=== PATIENT | male | born 1955 | race Caucasian/White ===

== ENCOUNTER 2021-07-23 09:40 | Inpatient (IN) | payer SELFPAY ==
[2021-07-23 10:13] LABS: CHLORIDE,CL 103 mEq/L (98-106); SODIUM,NA 137 mEq/L (136-145)
[2021-07-23] MEDS ORDERED: Furosemide 40 MG/4 ML VIAL IVPUSH ONE (13:31)
[2021-07-23] MEDS ORDERED: Docusate Sodium 100 MG Cap PO PRN (14:39)
[2021-07-23] MEDS ORDERED: Acetaminophen 325 MG Tab PO PRN (14:39)
[2021-07-23] MEDS ORDERED: Amiodarone 150 MG/3 ML SDV IVPUSH ONE (14:39)
[2021-07-23] MEDS ORDERED: Sodium Chloride 0.9% 10 ML Syringe FLUSH PRN (14:39)
[2021-07-23] MEDS ORDERED: Amiodarone 450 MG in Dextrose 5% in Water 250 ML IV ONE ×2 (15:35)
[2021-07-23] MEDS: Enoxaparin 80 MG/0.8 ML Syringe SUBCUT SCH (16:40)
[2021-07-23] MEDS ORDERED: Amiodarone 450 MG in Dextrose 5% in Water 250 ML IV SCH ×2 (22:01)
[2021-07-24] MEDS: Enoxaparin 80 MG/0.8 ML Syringe SUBCUT SCH ×2 (03:57→16:27)
[2021-07-24] MEDS ORDERED: Furosemide 40 MG/4 ML VIAL IVPUSH SCH (04:00)
[2021-07-24] MEDS: Levothyroxine 125 MCG Tab PO SCH (06:08)
[2021-07-24] MEDS ORDERED: Metoprolol Succinate 25 MG Tab.ER PO SCH (08:30)
[2021-07-24] MEDS ORDERED: Metoprolol Succinate 25 MG Tab.ER PO ONE (10:45)
--- NOTE | 2021-07-24 12:54 | PN ---
DATE: 07/24/2021 S: Mr. Castellanos is a 66-year-old male with known coronary artery disease. Five years ago had an MD and required I believe 4 stents placed. He has not had much for followup since then and has not been on beta hallie, aspirin, or statin. He presented with atrial flutter and associated CHF. An echocardiogram confirms an EF of 6% to 15%. He was placed on an amiodarone drip, kept on a low- dose beta hallie, and given Lasix. He is doing much better from a heart failure standpoint and sometime last night he converted to sinus rhythm. He will occasionally flip back into flutter, but very short lived. He denies any chest pain or shortness of breath. His lab work was reviewed. He did have elevated liver enzymes albeit mildly and now they are strikingly higher. I suspect related to his amiodarone. His proBNP is improved. O: GENERAL: The patient is alert, pleasant, cooperative, appears in absolutely no distress. NECK: His neck veins are nondistended. LUNGS: His lung sounds are clear. I do not hear any audible failure or crackles. CARDIAC: Tones are regular at this time. ABDOMEN: Soft. He has no right upper quadrant tenderness. EXTREMITIES: His edema is markedly improved at 1+ below the knees. ASSESSMENT: 1. ATRIAL FLUTTER, CONVERTED. 2. ACUTE SYSTOLIC CONGESTIVE HEART FAILURE. 3. ELEVATED LIVER FUNCTIONS. 4. CORONARY ARTERY DISEASE. 5. NICOTINE ADDICTION. P: We are going to stop his amiodarone as it likely is the cause of his hepatitis due to hepatic toxicity. I am going to increase his metoprolol from 12.5 to 25 of the succinate. We will decrease his Lasix dose down to once a day. I did talk to Dr. Woodard again, and the plan will be to get him into Dr. Woodard and their clinical data specialist, Dr. Pacheco next week to discuss possible ablation. The patient did agree to stay an extra day so I could keep an eye on his heart rate after we get rid of the amiodarone as well as recheck his liver functions tomorrow morning. NAIMA/LUIS /[id number]
[2021-07-24] MEDS ORDERED: Furosemide 40 MG/4 ML VIAL IVPUSH ONE (16:00)
[2021-07-25] MEDS: Enoxaparin 80 MG/0.8 ML Syringe SUBCUT SCH (04:07)
[2021-07-25] MEDS: Levothyroxine 125 MCG Tab PO SCH (06:27)
[2021-07-25] MEDS ORDERED: Furosemide 40 MG/4 ML VIAL IVPUSH SCH (08:00)
[2021-07-25] MEDS ORDERED: Metoprolol Succinate 25 MG Tab.ER PO SCH (08:00)
[2021-07-25 08:45] VITALS: BP 115/84; PULSE 70
--- NOTE | 2021-07-26 08:23 | DISCH ---
ADMISSION DIAGNOSES: 1. Acute exacerbation of congestive heart failure. 2. Paroxysmal ventricular tachycardia. 3. Elevated liver function tests. DISCHARGE DIAGNOSIS: 1. ATRIAL FLUTTER, CONVERTED. 2. ACUTE SYSTOLIC CONGESTIVE HEART FAILURE WITH EJECTION FRACTION 15% OR LESS. 3. ELEVATED LIVER FUNCTIONS, POSSIBLY SECONDARY TO AMIODARONE. 4. KNOWN HISTORY OF CORONARY ARTERY DISEASE. 5. NICOTINE ADDICTION. HISTORY: The patient is a 66-year-old male with known coronary artery disease. He presented to [facility] after being seen in [place] for increasing peripheral edema, shortness of breath. [facility] felt he was in PSVT given rate in the 140s associated with CHF. He attempted to transfer to Cardiology, but we could not as they had over capacity for beds. He subsequently put him in the hospital and started him on amiodarone drip, low-dose beta hallie, and Lasix. An echocardiogram was reviewed from the recent past, which showed an EF of 15%. The patient has not had Cardiology followup in 3 to 4 years after his stents. HOSPITAL COURSE: The patient actually converted on his amiodarone drip sometime in the evening on his date of admission and for the most part, did well with that. However, his liver functions which were mildly elevated on admission went significantly high from an AST of 86 to 809 and an ALT of 160 to 788. Subsequently, his amiodarone drip was stopped. He was in sinus rhythm at that time yesterday and so I did increase his beta hallie, which he seemed to tolerate well. He has had no worsening of his CHF and in fact, he is improved with marked improvement in edema, has not required any supplemental O2 and has improvement in his exertional capacity. His LFTs this morning are pending. Overall, the patient looks clinically much better. He is basically asymptomatic even with exertion while walking in the hallways. At this time, he needs followup with Dr. Woodard in [place]. The patient is agreeable to that. Dr. Woodard has been talked to, feels comfortable having the patient go back home on a slightly higher dose of his beta hallie, a low-dose Lasix, and a daily aspirin. He is going to have EP consult with him next week in [place] for possible ablative procedure for his A-flutter. At this time, he remains in sinus rhythm. His vitals are fine. Blood pressure today is 115/84 with a saturation of 96% on room air and his pulse is 70 in sinus. He will go home on Toprol-XL 25 mg a day, Lasix 40 mg daily, daily aspirin, and his thyroid medication. He is going to have following of his liver functions at that time as well. I suspect with cessation of his amiodarone, these should just slowly come down in time. If not, he will need further workup. COMPLICATIONS: During his stay were none. CONSULTATIONS: Via phone Dr. Woodard. PROCEDURES: None. DISPOSITION: The patient will be discharged home with followup being arranged early next week at [facility]. ETHAN /[id number]
== END 2021-07-25 11:40 | disposition home or self-care (01) | DRG 292 ==
LOC: CC.US 09:40 → UNDOADMIN 12:30 → CC.MS 12:30
PROVIDERS: ADMIT Physician Assistant Medical; ATTEND Family Medicine
DX: I50.23 Acute on chronic systolic (congestive) heart failure (principal); I48.92 Unspecified atrial flutter; I47.2 Ventricular tachycardia; I25.10 Atherosclerotic heart disease of native coronary artery without angina pectoris; F17.210 Nicotine dependence, cigarettes, uncomplicated; R74.8 Abnormal levels of other serum enzymes; T46.2X5A Adverse effect of other antidysrhythmic drugs, initial encounter; E78.00 Pure hypercholesterolemia, unspecified; E03.9 Hypothyroidism, unspecified; Z95.5 Presence of coronary angioplasty implant and graft; Z79.82 Long term (current) use of aspirin; Z79.890 Hormone replacement therapy; Z98.52 Vasectomy status
CPT/HCPCS: 36415; 76705; 80053; 82150; 83880; 85025; 93005; 93306; 93880; A9270-GY; J0282; J1650; J1940; J7060